=== PATIENT | female | born 1960 | race Caucasian/White ===

== ENCOUNTER 2021-03-17 14:08 | Emergency (ER) | payer OTHER, SELFPAY ==
--- NOTE | 2021-03-17 | ECG_ITS ---
Test Reason : CHEST PAIN Blood Pressure : / mmHG Vent. Rate : 088 BPM Atrial Rate : 088 BPM P-R Int : 126 ms QRS Dur : 080 ms QT Int : 346 ms P-R-T Axes : 012 -30 -04 degrees QTc Int : 418 ms Normal sinus rhythm Left axis deviation Abnormal ECG Referred By: Generic ED Physician Electronically Signed By:MIREYA JOHNSTON MD
[2021-03-17 14:25] VITALS: BP 155/85; PULSE 89; RESP 16; TEMP 36.4; O2SAT 95; BMI 42.5
--- NOTE | 2021-03-17 14:25 | ED.GENADULT ---
HPI - General Adult General Chief complaint: General Medical Stated complaint: Multiple complaints Time Seen by Provider: 03/17/21 14:25 Related Data Previous Rx's Medication Instructions Recorded lorazepam 0.5 mg tablet (Ativan) 0.5 mg PO BEDTIME PRN #10 tab 03/17/21 ondansetron HCl 4 mg tablet 4 mg PO Q8H #10 tab 03/17/21 (Zofran) Allergies Allergy/AdvReac Type Severity Reaction Status Date / Time Sulfa (Sulfonamide AdvReac Nausea Verified 03/17/21 14:27 Antibiotics) [facility] Past Medical History Medical History HTN (hypertension) Social History Social History Patient Tobacco Use Status: Never used Tobacco Use of substances other than those prescribed or required for medical reasons: No Advance Directives: No Advance Directives Information Provided: No Physical Exam Vital Signs: Vital Signs: Last Vital Signs Temp 98.0 F 03/17/21 18:38 Pulse 86 03/17/21 18:38 Resp 18 03/17/21 18:38 BP 160/89 H 03/17/21 18:38 Pulse Ox 95 03/17/21 18:38 Body Mass Index 42.5 Course Course Course Narrative: 1425-This is a rapid medical exam. 60 yo female with history of HTN, pre-diabetes with feeling of hot all over, weakness in arms/legs, nausea, jaw pain at 12pm. No chest pain. Now feeling improved with exception of weakness, mild nausea. Will check labs, EKG. Deferred additional HPI, ROS and PE to primary provider. Medical Decision Making Lab Data Result diagrams: 03/17/21 15:04 03/17/21 15:04 Labs: Lab Results 03/17/21 03/17/21 03/17/21 Range/Units 15:04 15:04 15:04 WBC 11.3 H (4.8-10.8) X10*3/uL RBC 5.17 (4.20-5.50) X10*6/uL Hgb 15.3 (12.0-16.0) g/dl Hct 45.4 (37-47) % MCV 87.8 (80-98) fL MCH 29.6 (27.0-33.0) pg MCHC 33.7 (31.0-35.0) g/dl RDW 13.0 (11.0-16.0) % Plt Count 236 (160-400) X10*3/uL MPV 9.8 (9.4-12.3) fL Immature Gran % (Auto) 0.8 H (0.0-0.4) % Neut % (Auto) 68.0 (45-73) % Lymph % (Auto) 21.8 (20-40) % [place] % (Auto) 7.0 (2-11) % Eos % (Auto) 2.0 (0-4) % Baso % (Auto) 0.4 (0-2) % Lymph # (Auto) 2.5 (1.2-4.9) X10*3/uL [place] # (Auto) 0.8 (0.1-1.2) X10*3/uL Eos # (Auto) 0.2 (0.0-0.4) X10*3/uL Baso # (Auto) 0.0 (0.0-0.2) X10*3/uL Abs Immat Gran (auto) 0.09 H (0.00-0.03) X10*3/uL Absolute Neuts (auto) 7.7 (2.0-8.3) X10*3/uL Absolute Nucleated RBC 0.000 (0.0-0.012) X10*3/uL Nucleated RBC % (auto) 0.0 (0.0-0.2) /100WBC Sodium 138 (135-145) mmol/L Potassium 4.1 (3.3-5.1) mmol/L Chloride 100 (96-108) mmol/L Carbon Dioxide 28 (22-29) mmol/L Anion Gap 14 (12-20) BUN 10 (9-16) mg/dL Creatinine 0.93 (0.5-1.4) mg/dL Estim Creat Clear Calc 78.0 Estimated GFR > 60 Random Glucose 165 H (60-115) mg/dL Calcium 10.0 (8.4-10.2) mg/dL Total Bilirubin 0.6 (0.0-1.0) mg/dL Direct Bilirubin 0.3 (0.0-0.5) mg/dL AST 27 (5-31) U/L ALT 47 H (0-31) U/L Alkaline Phosphatase 102 (39-117) U/L Troponin I High Sens < 3.5 (<3.5-17.0) ng/L Total Protein 6.6 (6.5-8.0) g/dL Albumin 4.0 (3.5-5.0) g/dL Discharge Plan Discharge Clinical Impression: Nonspecific chest pain, Anxiety, Headache Patient Disposition: Home, Self-Care Instructions: Chest Pain (ED), Generalized Anxiety Disorder (ED), Anxiety (ED) Additional Instructions: Follow-up with your primary care provider Your labs here in the emergency department, EKG were normal. Your blood pressure today in the emergency department was 160/89, is important that you follow-up with your PCP Patient emergency department with new or worsening symptoms. Prescriptions: New ondansetron HCl [Zofran] 4 mg tablet 4 mg PO Q8H Qty: 10 RF: 0 lorazepam [Ativan] 0.5 mg tablet 0.5 mg PO BEDTIME PRN (Reason: anxiety) Qty: 10 RF: 0 Referrals: Physician,Unknown J [Primary Care Provider] - 2 days Interventions: ED Discharge Assessment Last Done: 03/17/21 20:07 Discharge Date/Time: 03/17/21 20:08
[2021-03-17 15:22] LABS: MANUAL DIFF FLAG NO
[2021-03-17 15:24] LABS: Basophils Percent Auto 0.4 % (0-2); Eosinophils Absolute Auto 0.2 X10*3/uL (0.0-0.4); Hematocrit 45.4 % (37-47); Hemoglobin 15.3 g/dl (12.0-16.0); Imm Gran Abs Auto 0.09 X10*3/uL (0.00-0.03); Imm Gran Pct Auto 0.8 % (0.0-0.4); Lymphocytes Absolute Auto 2.5 X10*3/uL (1.2-4.9); Lymphocytes Percent Auto 21.8 % (20-40); Mean Corpuscular HGB Conc 33.7 g/dl (31.0-35.0); Mean Corpuscular Hemoglobin 29.6 pg (27.0-33.0); Mean Corpuscular Volume 87.8 fL (80-98); Mean Platelet Volume 9.8 fL (9.4-12.3); Monocytes Absolute Auto 0.8 X10*3/uL (0.1-1.2); Neutrophils Absolute Auto 7.7 X10*3/uL (2.0-8.3); Platelet Count 236 X10*3/uL (160-400); Red Blood Count 5.17 X10*6/uL (4.20-5.50); White Blood Count 11.3 X10*3/uL (4.8-10.8)
[2021-03-17 15:39] LABS: Alanine Aminotransferase 47 U/L (0-31); Alkaline Phosphatase 102 U/L (39-117); Anion Gap 14 (12-20); Aspartate Amino Transferase 27 U/L (5-31); Bilirubin Direct 0.3 mg/dL (0.0-0.5); Bilirubin Total 0.6 mg/dL (0.0-1.0); Blood Urea Nitrogen 10 mg/dL (9-16); Carbon Dioxide 28 mmol/L (22-29); Chloride 100 mmol/L (96-108); Estimated Glomerular Filt Rate > 60; Glucose Random 165 mg/dL (60-115); Potassium 4.1 mmol/L (3.3-5.1); Sodium 138 mmol/L (135-145); Total Protein 6.6 g/dL (6.5-8.0)
[2021-03-17 15:44] LABS: Troponin-I High Sensitivity < 3.5 ng/L (<3.5-17.0)
[2021-03-17 18:38] VITALS: BP 160/89; PULSE 86; RESP 18; TEMP 36.7; O2SAT 95
--- NOTE | 2021-03-17 18:42 | ED.GENADULT ---
HPI - General Adult General Chief complaint: General Medical Stated complaint: Multiple complaints Time Seen by Provider: 03/17/21 14:25 Source: patient Mode of arrival: ambulatory Limitations: no limitations History of Present Illness HPI narrative: 60-year-old female past medical history of hypertension presents to the emergency department stating I think I had a heart attack this morning . She states that this morning she was sitting at her kitchen table having a cup of coffee when she suddenly began feeling weak, and she began feeling warm to her entire body, she also mentions she fell muscle tension. She states that she is currently under a lot of stress, and became tearful, stating she is having hard time, because she is moving her mom into her home. She states she is here from out of town, she usually lives in [place]. She states that she wanted to come into the emergency department today to make sure she did have a heart attack this morning. She has no cardiac history. She states at this time she feels a little bit nauseous, but offers no other complaints. She denies chest pain, shortness of breath, fevers, chills, diaphoresis, weakness, fatigue, abdominal pain, nausea, vomiting. Onset (ago): hour(s) (9) Related Data Previous Rx's Medication Instructions Recorded lorazepam 0.5 mg tablet (Ativan) 0.5 mg PO BEDTIME PRN #10 tab 03/17/21 ondansetron HCl 4 mg tablet 4 mg PO Q8H #10 tab 03/17/21 (Zofran) Allergies Allergy/AdvReac Type Severity Reaction Status Date / Time Sulfa (Sulfonamide AdvReac Nausea Verified 03/17/21 14:27 Antibiotics) Review of Systems Review of Systems: Constitutional : No Weight loss, No Fever, No Chills, No Night Sweats, No Fatigue, No Malaise ENT/Mouth : No Hearing loss, No Ear Pain, No Nasal Congestion, No Sinus Pain, No Hoarseness, No sore throat, No Rhinorrhea, No Swallowing Difficulty Eyes: No Eye Pain, No Swelling, No Redness, No Foreign Body, No Discharge, No Vision Changes Cardiovascular : No Chest Pain, No SOB, No Dyspnea on Exertion, No Orthopnea, No Edema, No Palpitations Respiratory : No Cough, No Sputum, No Wheezing, No Smoke Exposure, No Dyspnea Gastrointestinal : + Nausea, No Vomiting, No Diarrhea, No Constipation, No abdominal Pain, No Hematochezia, No Melena Genitourinary : no irregular bleeding, No Dysuria, No Urinary Frequency, No Hematuria, No Urinary Incontinence, No Urgency, No Flank Pain, No Urinary Flow Changes, No Hesitancy Musculoskeletal : No joint pain, No Myalgias, No Joint Swelling, +muscle tension Skin : No Skin Lesions, No rash Neuro : + Weakness, No Numbness, No Paresthesias, No Loss of Consciousness, No Dizziness, No Headache Psych : + Anxiety/Panic, No Depression, No SI/HI/AH/VH, No Social Issues, Neurologic: Reports Abnormal speech present [facility] Past Medical History Attestation statement: The following information was validated with the patient. Source: old records reviewed and nursing notes reviewed Medical History HTN (hypertension) Social History Social History Patient Tobacco Use Status: Never used Tobacco Use of substances other than those prescribed or required for medical reasons: No Advance Directives: No Advance Directives Information Provided: No Physical Exam Vital Signs: Vital Signs: Last Vital Signs Temp 98.0 F 03/17/21 18:38 Pulse 86 03/17/21 18:38 Resp 18 03/17/21 18:38 BP 160/89 H 03/17/21 18:38 Pulse Ox 95 03/17/21 18:38 Body Mass Index 42.5 Const: General: cooperative Nutritional Appearance: average body habitus Orientation/consciousness: oriented to person, oriented to place and oriented to time Limitations: no limitations HENMT: Head: Yes normal to inspection Mouth: Normal oral and palatal mucosa present Eyes: General: appearance normal, both eyes and all related structures Pupils: Equal, round and reactive pupils present EOM: EOMs intact bilaterally Neck: Neck: Yes normal visual inspection and Yes full ROM Thyroid: Thyroid normal Lymphatic: no lymphadenopathy noted Resp: Effort & Inspection: normal respiratory effort and able to speak in complete sentences Auscultation: clear to auscultation bilaterally Cardio: Palpation: normal PMI Rate: regular rate Rhythm: regular rhythm and abnormal rhythm Heart sounds: S1 normal heart sound present and S2 normal heart sound present GI: Inspection: Yes normal to inspection Palpation (GI): Soft to palpation and nontender : General: Yes no CVA tenderness Back/Spine/Pelvis: Back: no CVA tenderness Neuro: General: oriented to person, oriented to place and oriented to time Cranial nerves: Yes CN's II-XII intact bilaterally and Yes Equal, round and reactive pupils present Cognition (Neuro): normal cognition Speech: Abnormal speech present Gait exam (Neuro): Normal gait present Motor exam (neuro): 5/5 motor strength present throughout Sensory Exam: Normal double simultaneous stimulation for sensation Coordination: [id number] test normal, [id number] test normal and tandem gait normal Extrem: General: Yes normal to inspection, Yes full ROM and Yes no pedal edema Psych: Mental Status: mental status grossly normal Course Course Course Narrative: 52-year-old female, past medical history significant for hypertension presents to the emergency department with one epiode of heatflash, muscle tension, and nausea around 9 am this morning. She states she decided to come into the emergency department, as she was afraid she may be had a heart attack. She states that she is currently under a lot of stress, and is trying to move her mother into her home in [place]. Upon interviewing the patient, she became tearful and anxious. She also mentions that she was recently on prednisone for a rash, and she finished yesterday. Upon physical examination and there is no murmurs rubs or gallops noted, no focal neuro deficits. [id number] normal, [id number] normal, rapid alternating movements normal, 5/5 strength upper and lower extremities, normal gait. Patient is alert and oriented x3. She is tearful, and anxious throughout the interview. Plan at this time is to obtain basic labs, an EKG, troponin. We will rule out ACS. Reevaluation(s) Reevaluation #1: Upon reviewing labs, there is no acute infection, no anemia, EKG is negative, troponin negative. This is likely anxiety. At this time, all symptoms have subsided the patient reports a slight headache, she will be given Tylenol. She does admit to being under a lot of stress. She is safe for discharge home, with PCP follow-up. Medical Decision Making Lab Data Lab results reviewed: Yes I reviewed the patient's lab results. Result diagrams: 03/17/21 15:04 10/18/21 15:04 Labs: Lab Results 03/17/21 03/17/21 03/17/21 Range/Units 15:04 15:04 15:04 WBC 11.3 H (4.8-10.8) X10*3/uL RBC 5.17 (4.20-5.50) X10*6/uL Hgb 15.3 (12.0-16.0) g/dl Hct 45.4 (37-47) % MCV 87.8 (80-98) fL MCH 29.6 (27.0-33.0) pg MCHC 33.7 (31.0-35.0) g/dl RDW 13.0 (11.0-16.0) % Plt Count 236 (160-400) X10*3/uL MPV 9.8 (9.4-12.3) fL Immature Gran % (Auto) 0.8 H (0.0-0.4) % Neut % (Auto) 68.0 (45-73) % Lymph % (Auto) 21.8 (20-40) % [place] % (Auto) 7.0 (2-11) % Eos % (Auto) 2.0 (0-4) % Baso % (Auto) 0.4 (0-2) % Lymph # (Auto) 2.5 (1.2-4.9) X10*3/uL [place] # (Auto) 0.8 (0.1-1.2) X10*3/uL Eos # (Auto) 0.2 (0.0-0.4) X10*3/uL Baso # (Auto) 0.0 (0.0-0.2) X10*3/uL Abs Immat Gran (auto) 0.09 H (0.00-0.03) X10*3/uL Absolute Neuts (auto) 7.7 (2.0-8.3) X10*3/uL Absolute Nucleated RBC 0.000 (0.0-0.012) X10*3/uL Nucleated RBC % (auto) 0.0 (0.0-0.2) /100WBC Sodium 138 (135-145) mmol/L Potassium 4.1 (3.3-5.1) mmol/L Chloride 100 (96-108) mmol/L Carbon Dioxide 28 (22-29) mmol/L Anion Gap 14 (12-20) BUN 10 (9-16) mg/dL Creatinine 0.93 (0.5-1.4) mg/dL Estim Creat Clear Calc 78.0 Estimated GFR > 60 Random Glucose 165 H (60-115) mg/dL Calcium 10.0 (8.4-10.2) mg/dL Total Bilirubin 0.6 (0.0-1.0) mg/dL Direct Bilirubin 0.3 (0.0-0.5) mg/dL AST 27 (5-31) U/L ALT 47 H (0-31) U/L Alkaline Phosphatase 102 (39-117) U/L Troponin I High Sens < 3.5 (<3.5-17.0) ng/L Total Protein 6.6 (6.5-8.0) g/dL Albumin 4.0 (3.5-5.0) g/dL ECG Data Attestation: I personally reviewed and interpreted this ECG as follows: Prior ECG tracings: not available for review Interpretation: Patient jugular rate of 88, [place] normal, QRS normal, QT/QTC normal. EKG shows normal sinus rhythm, with left axis deviation. No ST elevation, no T-wave inversions. No acute ischemia. No previous EKGs for comparison. Discharge Plan Discharge Clinical Impression: Nonspecific chest pain, Anxiety, Headache Patient Disposition: Home, Self-Care Instructions: Chest Pain (ED), Generalized Anxiety Disorder (ED), Anxiety (ED) Additional Instructions: Follow-up with your primary care provider Your labs here in the emergency department, EKG were normal. Your blood pressure today in the emergency department was 160/89, is important that you follow-up with your PCP Patient emergency department with new or worsening symptoms. Prescriptions: New ondansetron HCl [Zofran] 4 mg tablet 4 mg PO Q8H Qty: 10 RF: 0 lorazepam [Ativan] 0.5 mg tablet 0.5 mg PO BEDTIME PRN (Reason: anxiety) Qty: 10 RF: 0 Referrals: Physician,Unknown J [Primary Care Provider] - 2 days
[2021-03-17] MEDS: Acetaminophen 325 MG TABLET 650 MG PO (20:03)
== END 2021-03-17 20:08 | disposition home or self-care (01) ==
PROVIDERS: Nurse Practitioner Family; Emergency Provider Internal Medicine
DX: R07.9 Chest pain, unspecified (principal); F41.1 Generalized anxiety disorder; F43.0 Acute stress reaction; R51.9 Headache, unspecified; Z79.899 Other long term (current) drug therapy
CPT/HCPCS: 36415; 80048; 80076; 84484; 85025; 93005; 99283; 99284